=== PATIENT | male | born 1980 | race Caucasian/White ===

== ENCOUNTER 2018-12-28 17:03 | Emergency (ER) | payer SELFPAY ==
[2018-12-28 17:28] VITALS: BP 118/72
--- NOTE | 2018-12-28 18:35 | UC ---
Skin Complaint HPI - HPI Summary HPI Summary: 38 y/o male presents to the urgent care c/o Rash to lower abodmen starting yesterday; unsure if bit by something; swollen and painful; denies any fever. - History of Current Complaint Chief Complaint: UCSkin Time Seen by Provider: 12/28/18 18:32 Stated Complaint: SKIN IRRITATION Hx Obtained From: Patient Onset/Duration: Gradual Onset, Lasting Days - 1 day, Still Present, Worse Since - today Skin Exposure Onset/Duration: Days Ago - 1 day Timing: Constant Onset Severity: Mild Current Severity: Mild Pain Intensity: 5 Pain Scale Used: 0-10 Numeric Location: Discrete - RT side of suprapudic area Character: Hives, Redness, Painful Aggravating Factor(s): Touch Alleviating Factor(s): OTC Meds Associated Signs & Symptoms: Positive: Rash - RT side of suprapubic area w/ a red rash painful. Negative: Fever, Chills Related History: Possible Reaction to: Insect - possible insect bite - Allergy/Home Medications Allergies/Adverse Reactions: Allergies Allergy/AdvReac Type Severity Reaction Status Date / Time No Known Allergies Allergy Verified 12/28/18 17:24 PMH/Surg Hx/FS Hx/Imm Hx Previously Healthy: Yes - Pt denies PMHX - Surgical History Surgical History: Yes Surgery Procedure, Year, and Place: bilateral hip repair d/t fracture. right femur surgery. right knee repair x's 3 - Family History Known Family History: Positive: None - Pt denies FMHX - Social History Occupation: Employed Full-time Lives: With Family Alcohol Use: Occasionally Substance Use Type: None Smoking Status (MU): Never Smoked Tobacco Review of Systems All Other Systems Reviewed And Are Negative: Yes Constitutional: Positive: Negative Skin: Positive: Rash - RT carol eof suprapubic area w/ a red rash s/p possibe insect bite ENT: Positive: Negative Respiratory: Positive: Negative Cardiovascular: Positive: Negative Gastrointestinal: Positive: Negative Genitourinary: Positive: Negative Motor: Positive: Negative Neurovascular: Positive: Negative Musculoskeletal: Positive: Negative Neurological: Positive: Negative Psychological: Positive: Negative Is Patient Immunocompromised?: No Physical Exam - Summary Physical Exam Summary: Vital Signs Reviewed: Yes General: well appearing, well nourished male in no acute apparent pain distress , sitting comfortably on examining table Eye Exam: Normal Eyes: Positive: Conjunctiva Clear - PERRLA< EOMI, fundi grossly normal ENT: Positive: Normal ENT inspection, Hearing grossly normal, Pharynx normal, TMs normal Neck: Positive: Supple, Nontender, No Lymphadenopathy Respiratory: Positive: Chest non-tender, Lungs clear, Normal breath sounds, No respiratory distress Cardiovascular: Positive: RRR, No Murmur, Pulses Normal, Brisk Capillary Refill Abdomen Description: Positive: Nontender, No Organomegaly, Soft. Negative: CVA Tenderness (R), CVA Tenderness (L) Bowel Sounds: Positive: Present Musculoskeletal: Positive: Strength Intact, ROM Intact, No Edema Neurological: Positive: Alert, Muscle Tone Normal Psychological Exam: Normal Skin: Positive: Positive RT side of suprapubic w/ area erythematous patch w/ indistinct borders, warm and tender to palpation, no drainage observed. pulses WNL, capillary refill brisk, sensation WNL. Triage Information Reviewed: Yes Vital Signs: Initial Vital Signs Temp 99.2 F 12/28/18 17:25 Pulse 89 12/28/18 17:25 Resp 18 12/28/18 17:25 BP 118/72 12/28/18 17:25 Pulse Ox 97 12/28/18 17:25 Course/Dx - Differential Diagnoses - Skin Complaint Differential Diagnoses: Abscess, Cellulitis, Contact Dermatitis, Local Allergic Reaction, MRSA, Tick Born Illness - Diagnoses Provider Diagnosis: Cellulitis of suprapubic region Discharge - Sign-Out/Discharge Documenting (check all that apply): Patient Departure - d/c home All imaging exams completed and their final reports reviewed: No Studies - Discharge Plan Condition: Stable Disposition: HOME Prescriptions: Cephalexin CAP* [Keflex CAP*] 500 mg PO QID #28 cap Mupirocin 2% OINT* [Bactroban 2 % Oint*] 1 applic TOPICAL BID #1 tube Patient Education Materials: Cellulitis (ED) Referrals: Ashish Patton MD [Primary Care Provider] - 3 Days Additional Instructions: 1-Please take full course of Antibiotic. Take yogurts w/ probiotics or culturelle to protect your GI system 2- If redness and swelling doubles in size beyond what was demarcated after 48 hrs of taking antibiotic and fever develops please go to the ER immediately. 3- apply war compresses to alleviate symptoms and apply Bactroban oint as directed 4- Take Ibuprofen PO q6-8hrs prn after meals to alleviate pain. 5-Please F/u with your PCP in 3 days if not improvement of symptoms or if rash becomes and abscess for further evaluation and treatment. - Billing Disposition and Condition Condition: STABLE Disposition: Home
== END 2018-12-28 19:15 | disposition home or self-care (01) ==
LOC: UCEAST 17:03
DX: L03.311 Cellulitis of abdominal wall (principal)
CPT/HCPCS: 99202; G0463